=== PATIENT | female | born 1945 | race Caucasian/White ===

== ENCOUNTER 2022-03-22 11:44 | Day surgery (SDC) | payer MEDICARE, OTHER ==
[~2022-03-22] VITALS: Ht 160 cm; Wt 47.0 kg
[2022-03-22] MEDS ORDERED: VITAMIN A (12:34)
[2022-03-22] MEDS ORDERED: VITAMIN E (12:34)
[2022-03-22] MEDS ORDERED: ASCORBIC ACID (12:34)
[2022-03-22] MEDS ORDERED: LUTEIN (12:34)
[2022-03-22] MEDS ORDERED: MELO7.5 PO (12:35)
--- NOTE | 2022-03-22 12:42 | NUR ---
03/22/22 1242 Karla Galindo AT 1235 PLEDGET AT 1237
== END 2022-03-22 14:30 | disposition home or self-care (01) ==
LOC: ORSCSDS 11:44
PROVIDERS: Ophthalmology
PROC: 08DJ3ZZ Extraction of Right Lens, Percutaneous Approach (ICD-10-PCS; principal; 2022-03-22 13:30)
DX: H25.11 Age-related nuclear cataract, right eye (principal)
CPT/HCPCS: J2001; J2250; J3010; J3301; J7040; V2632

== ENCOUNTER 2022-04-10 14:54 | Day surgery (SDC) | payer MEDICARE, OTHER ==
[~2022-04-10] VITALS: Ht 160 cm; Wt 47.8 kg
[~2022-04-10 14:54] MED LIST: ASCORBIC ACID; LUTEIN; MELO7.5 PO; VITAMIN A; VITAMIN E
--- NOTE | 2022-04-10 15:10 | NUR ---
04/10/22 1510 NARCISO BENTONECAINE: 1509 PLEDGIT: 1514
== END 2022-04-10 16:34 | disposition home or self-care (01) ==
LOC: ORSCSDS 14:54
PROVIDERS: Ophthalmology
PROC: 08DK3ZZ Extraction of Left Lens, Percutaneous Approach (ICD-10-PCS; principal; 2022-04-10 16:00)
DX: H25.12 Age-related nuclear cataract, left eye (principal); Z96.1 Presence of intraocular lens; H35.3120 Nonexudative age-related macular degeneration, left eye, stage unspecified; H35.3210 Exudative age-related macular degeneration, right eye, stage unspecified; Z87.891 Personal history of nicotine dependence; Z79.899 Other long term (current) drug therapy
CPT/HCPCS: J2001; J2250; J3010; J3301; J7040; V2632